=== PATIENT | female | born 1955 | race Caucasian/White ===

== ENCOUNTER 2017-03-13 20:12 | Inpatient (IN) | payer BC ==
[~2017-03-13] VITALS: Ht 167.6 cm; Wt 113.4 kg
[2017-03-13 23:53] VITALS: BP_SYST 122
[2017-03-14] VITALS: BP_SYST 122
[2017-03-14] MEDS ORDERED: FLU VACC QS 2017-18(36MOS+)/PF 0.5 ML/SYR SYRINGE I.M. PRN (00:15)
[2017-03-14] MEDS ORDERED: ZOLPIDEM TARTRATE 5 MG TABLET PO ONE (00:45)
[2017-03-14] MEDS ORDERED: LEVOFLOXACIN 500 MG/D5W 100 ML IV ONE ×2 (01:00→01:41)
[2017-03-14] MEDS: HYDROmorphone 1 MG INJ. 1 MG/ML AMPUL IVP PRN ×2 (01:33→06:44)
[2017-03-14] MEDS: D5NS 1,000 ML IV SCH ×3 (01:45→22:03)
[2017-03-14 04:00] VITALS: BP_SYST 177
[2017-03-14 06:35] LABS: BASOPHILS % (AUTO) 0.7 % (0.0-2.0); EOSINOPHILS # (AUTO) 0.2 K/uL (0.0-0.4); EOSINOPHILS % (AUTO) 3.6 % (0.0-4.0); HEMATOCRIT 38.7 % (36-48); HEMOGLOBIN 13.4 g/dL (12.0-16.0); LYMPHOCYTES # (AUTO) 2.9 K/uL (1.0-5.5); LYMPHOCYTES % (AUTO) 42.9 % (20.5-51.5); MEAN CORPUSCULAR HEMOGLOBIN 33 pg (27-31); MEAN CORPUSCULAR HGB CONC 35 % (32-36); MEAN CORPUSCULAR VOLUME 94 fL (79.0-98.0); MONOCYTES # (AUTO) 0.7 K/uL (0.0-1.0); MONOCYTES % (AUTO) 10.4 % (1.7-9.3); NEUTROPHILS # (AUTO) 2.8 K/uL (1.8-7.7); NEUTROPHILS % (AUTO) 42.4 % (40.0-70.0); PLATELET COUNT (AUTO) 169 K/uL (130-430); RED BLOOD CELL COUNT(AUTO) 4.12 MIL/uL (4.2-6.2); RED CELL DISTRIBUTION WIDTH 13.1 % (9.0-15.0); WHITE BLOOD COUNT (AUTO) 6.6 K/uL (4.8-10.8)
[2017-03-14 07:00] LABS: ALBUMIN 3.3 g/dL (3.4-4.8); CREATININE 0.75 mg/dL (0.55-1.30); POTASSIUM 3.7 mmol/L (3.5-5.1); TOTAL BILIRUBIN 0.6 mg/dL (0.0-1.0)
[2017-03-14] MEDS ORDERED: DIATR MEGLU/DIATRIZ SOD 30 ML SOLUTION PO ONE (07:30)
[2017-03-14 08:01] VITALS: BP_SYST 127
[2017-03-14] MEDS ORDERED: IOHEXOL 100 ML IV ONE (09:00)
[2017-03-14 12:00] VITALS: BP_SYST 107
[2017-03-14 16:00] VITALS: BP_SYST 102
[2017-03-14 19:45] VITALS: BP_SYST 117
[2017-03-14] MEDS: LEVOFLOXACIN 500 MG/D5W 100 ML IV SCH (22:03)
[2017-03-14] MEDS ORDERED: ZOLPIDEM TARTRATE 5 MG TABLET PO PRN (22:15)
[2017-03-15] VITALS (8 sets, daily range): BP systolic 110–134
[2017-03-15] MEDS ORDERED: metroNIDAZOLE 500 mg/NS 100 ML IV ONE (09:15)
[2017-03-15 09:50] LABS: BASOPHILS # (AUTO) 0.2 K/uL (0.0-0.2); BASOPHILS % (AUTO) 3.3 % (0.0-2.0); EOSINOPHILS # (AUTO) 0.2 K/uL (0.0-0.4); EOSINOPHILS % (AUTO) 2.7 % (0.0-4.0); HEMATOCRIT 43.1 % (36-48); HEMOGLOBIN 14.4 g/dL (12.0-16.0); LYMPHOCYTES # (AUTO) 1.6 K/uL (1.0-5.5); LYMPHOCYTES % (AUTO) 26.9 % (20.5-51.5); MEAN CORPUSCULAR HEMOGLOBIN 31 pg (27-31); MEAN CORPUSCULAR HGB CONC 33 % (32-36); MEAN CORPUSCULAR VOLUME 93 fL (79.0-98.0); MONOCYTES # (AUTO) 0.5 K/uL (0.0-1.0); MONOCYTES % (AUTO) 8.6 % (1.7-9.3); NEUTROPHILS # (AUTO) 3.3 K/uL (1.8-7.7); PLATELET COUNT (AUTO) 179 K/uL (130-430); RED BLOOD CELL COUNT(AUTO) 4.62 MIL/uL (4.2-6.2); RED CELL DISTRIBUTION WIDTH 13.4 % (9.0-15.0); WHITE BLOOD COUNT (AUTO) 5.8 K/uL (4.8-10.8)
[2017-03-15 10:07] LABS: CALCIUM 9.2 mg/dL (8.4-11.0); CREATININE 0.69 mg/dL (0.55-1.30)
[2017-03-15 10:11] LABS: ALBUMIN 3.5 g/dL (3.4-4.8); TOTAL BILIRUBIN 0.4 mg/dL (0.0-1.0)
[2017-03-15 10:25] LABS: NEUTROPHILS % (AUTO) 58.5 % (40.0-70.0)
[2017-03-15 12:30] LABS: INR 1.2 (0.8-1.2); PROTHROMBIN TIME 12.1 SECS (9.5-12.5)
[2017-03-15] MEDS: metroNIDAZOLE 500 mg/NS 100 ML IV SCH ×2 (14:00→23:18)
[2017-03-15 15:36] LABS: BILIRUBIN,URINE NEGATIVE (NEGATIVE); BLOOD, URINE NEGATIVE (NEGATIVE); CLARITY/URINE CLEAR (CLEAR); COLOR,URINE YELLOW (YELLOW); GLUCOSE,URINE NEGATIVE (NEGATIVE); KETONES,URINE NEGATIVE (NEGATIVE); LEUKOCYTE ESTERASE ,URINE NEGATIVE (NEGATIVE); NITRITE, URINE NEGATIVE (NEGATIVE); PROTEIN URINE NEGATIVE (NEGATIVE)
[2017-03-15] MEDS: D5NS 1,000 ML IV SCH ×2 (15:38→18:55)
[2017-03-15] MEDS ORDERED: SEVOFLURANE 15 MIN GAS INH ONE (16:35)
[2017-03-15] MEDS ORDERED: NS IRRIG SOLN 1000 ML IR ONE (16:35)
[2017-03-15] MEDS ORDERED: fentaNYL CITRATE/PF 100 MCG/2 ML AMP IVP ONE (16:35)
[2017-03-15] MEDS ORDERED: PROPOFOL 200MG/ 20ML VIAL (DIPRIVAN) IV ONE ×2 (16:35)
[2017-03-15] MEDS ORDERED: NS 1000 ML BAG IV ONE (16:35)
[2017-03-15] MEDS ORDERED: MIDAZOLAM HCL 5 MG/5 ML VIAL IVP ONE (16:35)
[2017-03-15] MEDS ORDERED: LR 1,000 ML IV.SOLN IV ONE (16:35)
[2017-03-15] MEDS ORDERED: LR 1,000 ML IV SCH (17:25)
[2017-03-15] MEDS ORDERED: MORPHINE 4 MG/ML INJ. SYRINGE IVP PRN ×3 (17:30)
[2017-03-15] MEDS ORDERED: METOCLOPRAMIDE HCL 10 MG/2 ML VIAL IVP PRN (17:30)
[2017-03-15] MEDS ORDERED: MORPHINE 4 MG/ML INJ. SYRINGE ONE (18:06)
[2017-03-15] MEDS ORDERED: HYDROmorphone 1 MG INJ. 1 MG/ML AMPUL ONE (18:25)
[2017-03-15] MEDS: HYDROmorphone 1 MG INJ. 1 MG/ML AMPUL IVP ONE (18:45)
[2017-03-15] MEDS: HYDROmorphone 1 MG INJ. 1 MG/ML AMPUL IVP PRN (20:19)
[2017-03-15] MEDS: LEVOFLOXACIN 500 MG/D5W 100 ML IV SCH (20:20)
[2017-03-16] MEDS: HYDROmorphone 1 MG INJ. 1 MG/ML AMPUL IVP PRN ×5 (00:41→22:58)
[2017-03-16 03:50] VITALS: BP_SYST 115
[2017-03-16] MEDS: D5NS 1,000 ML IV SCH ×3 (06:13→23:05)
[2017-03-16] MEDS: metroNIDAZOLE 500 mg/NS 100 ML IV SCH ×3 (06:13→22:14)
[2017-03-16 07:12] LABS: BASOPHILS % (AUTO) 0.2 % (0.0-2.0); EOSINOPHILS % (AUTO) 0.1 % (0.0-4.0); HEMATOCRIT 39.2 % (36-48); HEMOGLOBIN 13.4 g/dL (12.0-16.0); LYMPHOCYTES # (AUTO) 1.3 K/uL (1.0-5.5); LYMPHOCYTES % (AUTO) 11.4 % (20.5-51.5); MEAN CORPUSCULAR HEMOGLOBIN 32 pg (27-31); MEAN CORPUSCULAR HGB CONC 34 % (32-36); MEAN CORPUSCULAR VOLUME 93 fL (79.0-98.0); MONOCYTES # (AUTO) 0.9 K/uL (0.0-1.0); MONOCYTES % (AUTO) 7.5 % (1.7-9.3); NEUTROPHILS # (AUTO) 9.6 K/uL (1.8-7.7); NEUTROPHILS % (AUTO) 80.8 % (40.0-70.0); PLATELET COUNT (AUTO) 157 K/uL (130-430); RED BLOOD CELL COUNT(AUTO) 4.23 MIL/uL (4.2-6.2); RED CELL DISTRIBUTION WIDTH 13.3 % (9.0-15.0); WHITE BLOOD COUNT (AUTO) 11.8 K/uL (4.8-10.8)
[2017-03-16 08:25] VITALS: BP_SYST 106
[2017-03-16] MEDS ORDERED: PROP10TA10 PO (11:50)
[2017-03-16] MEDS ORDERED: ESCI10TA PO (11:54)
[2017-03-16 12:21] VITALS: BP_SYST 112
[2017-03-16 16:50] VITALS: BP_SYST 116
[2017-03-16] MEDS: PROPRANOLOL HCL 10 MG TABLET (INDERAL) PO SCH (18:00)
[2017-03-16] MEDS ORDERED: ESCITALOPRAM OXALATE 10 MG TABLET PO SCH (18:00)
[2017-03-16] MEDS: ONDANSETRON HCL 4 MG/2 ML VIAL IVP PRN ×2 (18:27→22:57)
[2017-03-16 20:00] VITALS: BP_SYST 115
[2017-03-16] MEDS: LEVOFLOXACIN 500 MG/D5W 100 ML IV SCH (20:59)
[2017-03-16] MEDS: HYDROmorphone 1 MG INJ. 1 MG/ML AMPUL IVP ONE (22:58)
[2017-03-16 23:25] VITALS: BP_SYST 129
[2017-03-17 04:37] VITALS: BP_SYST 122
[2017-03-17] MEDS: metroNIDAZOLE 500 mg/NS 100 ML IV SCH (06:25)
[2017-03-17 07:20] LABS: BASOPHILS % (AUTO) 0.3 % (0.0-2.0); EOSINOPHILS # (AUTO) 0.3 K/uL (0.0-0.4); EOSINOPHILS % (AUTO) 3.3 % (0.0-4.0); HEMATOCRIT 36.6 % (36-48); HEMOGLOBIN 12.7 g/dL (12.0-16.0); LYMPHOCYTES # (AUTO) 1.8 K/uL (1.0-5.5); LYMPHOCYTES % (AUTO) 21.1 % (20.5-51.5); MEAN CORPUSCULAR HEMOGLOBIN 32 pg (27-31); MEAN CORPUSCULAR HGB CONC 35 % (32-36); MEAN CORPUSCULAR VOLUME 93 fL (79.0-98.0); MONOCYTES % (AUTO) 11.6 % (1.7-9.3); NEUTROPHILS # (AUTO) 5.5 K/uL (1.8-7.7); NEUTROPHILS % (AUTO) 63.7 % (40.0-70.0); PLATELET COUNT (AUTO) 142 K/uL (130-430); RED BLOOD CELL COUNT(AUTO) 3.92 MIL/uL (4.2-6.2); RED CELL DISTRIBUTION WIDTH 13.6 % (9.0-15.0); WHITE BLOOD COUNT (AUTO) 8.6 K/uL (4.8-10.8)
[2017-03-17 07:44] LABS: ALBUMIN 2.9 g/dL (3.4-4.8); CALCIUM 8.7 mg/dL (8.4-11.0); CREATININE 0.74 mg/dL (0.55-1.30); POTASSIUM 3.3 mmol/L (3.5-5.1); TOTAL BILIRUBIN 0.5 mg/dL (0.0-1.0)
[2017-03-17] MEDS: ONDANSETRON HCL 4 MG/2 ML VIAL IVP PRN (08:54)
[2017-03-17] MEDS: HYDROmorphone 1 MG INJ. 1 MG/ML AMPUL IVP PRN ×2 (08:57→16:17)
[2017-03-17] MEDS: PROPRANOLOL HCL 10 MG TABLET (INDERAL) PO SCH (08:58)
[2017-03-17] MEDS ORDERED: CITALOPRAM HYDROBROMIDE 20 MG TABLET PO SCH (09:00)
[2017-03-17 12:47] VITALS: BP_SYST 116
[2017-03-17 15:27] VITALS: BP_SYST 119
[2017-03-17] MEDS ORDERED: METR500T PO ×2 (15:55→15:56)
[2017-03-17] MEDS ORDERED: LEVO500T20 PO (16:00)
[2017-03-17 16:35] VITALS: BP_SYST 100
[2017-03-17] MEDS ORDERED: TYC3 PO (16:41)
[2017-03-17] MEDS ORDERED: ONDA4TAB5 PO (16:42)
== END 2017-03-17 16:26 | disposition home health service (06) | DRG 342 ==
LOC: SMU 23:45
PROVIDERS: ADMIT Internal Medicine Hospice and Palliative Medicine; ATTEND Internal Medicine Hospice and Palliative Medicine
PROC: 0DJD4ZZ Inspection of Lower Intestinal Tract, Percutaneous Endoscopic Approach (ICD-10-PCS; 2017-03-15)
PROC: 0DTJ0ZZ Resection of Appendix, Open Approach (ICD-10-PCS; principal; 2017-03-15 16:30)
DX: K35.80 Unspecified acute appendicitis (principal); N83.209 Unspecified ovarian cyst, unspecified side; E66.9 Obesity, unspecified; Z87.442 Personal history of urinary calculi; Z90.49 Acquired absence of other specified parts of digestive tract; Z68.41 Body mass index [BMI] 40.0-44.9, adult; Z98.84 Bariatric surgery status; Z88.0 Allergy status to penicillin; Z88.1 Allergy status to other antibiotic agents
CPT/HCPCS: 36415; 71010; 76705; 80053; 81003; 82150-TC; 82962; 83690-TC; 84702-TC; 85025; 85610-TC; 85730-TC; 86886; 86900; 86901; 87081; 88304; 93005; 94010; C1727; J1170; J1956; J2250; J2270; J2405; J2704; J3010; J3490; J7030; J7042; J7120; Q2037; Q9964; Q9967

== ENCOUNTER 2023-10-12 14:50 | Inpatient (IN) | payer OTHER, MEDICAID ==
[~2023-10-12] VITALS: Ht 167.6 cm; Wt 127.9 kg
[~2023-10-12 14:50] MED LIST: ESCI10TA PO; LEVO500T20 PO; METR500T PO; ONDA4TAB5 PO; PROP10TA10 PO; TYC3 PO
[2023-10-12 14:57] VITALS: BP_SYST 111; PULSE 80; RESP 18; TEMP 98.1; O2SAT 96
[2023-10-12] MEDS ORDERED: ESCI20TA38 PO (15:12)
[2023-10-12] MEDS: NACL 0.9% 1,000 ML IV ONE (15:35)
[2023-10-12 15:46] LABS: BASOPHILS # (AUTO) 0.1 K/uL (0.0-0.2); BASOPHILS % (AUTO) 0.6 % (0.0-2.0); EOSINOPHILS # (AUTO) 0.5 K/uL (0.0-0.4); EOSINOPHILS % (AUTO) 4.7 % (0.0-4.0); HEMATOCRIT 36.4 % (36-48); LYMPHOCYTES # (AUTO) 2.7 K/uL (1.0-5.5); LYMPHOCYTES % (AUTO) 27.5 % (20.5-51.5); MEAN CORPUSCULAR HEMOGLOBIN 38 pg (27-31); MEAN CORPUSCULAR HGB CONC 36 % (32-36); MEAN CORPUSCULAR VOLUME 107 fL (79.0-98.0); MONOCYTES # (AUTO) 1.2 K/uL (0.0-1.0); MONOCYTES % (AUTO) 12.3 % (1.7-9.3); NEUTROPHILS # (AUTO) 5.3 K/uL (1.8-7.7); NEUTROPHILS % (AUTO) 54.9 % (40.0-70.0); PLATELET COUNT (AUTO) 234 K/uL (130-430); RED BLOOD CELL COUNT(AUTO) 3.41 MIL/uL (4.2-6.2); RED CELL DISTRIBUTION WIDTH 14.6 % (9.0-15.0); WHITE BLOOD COUNT (AUTO) 9.7 K/uL (4.8-10.8)
[2023-10-12 16:02] LABS: ANION GAP 10 (5-15); CALCIUM 8.9 mg/dL (8.4-11.0); CARBON DIOXIDE 28 mmol/L (23-29); CHLORIDE 97 mmol/L (98-107); CREATININE 3.62 mg/dL (0.55-1.30); GFR AFRICAN AMERICAN 16 mL/min (>90); GFR NON AFRICAN-AMERICAN 13 mL/min (>90); GLUCOSE 94 mg/dL (74-106); SODIUM SERUM 135 mmol/L (136-145); UREA NITROGEN, BLOOD 25 mg/dL (8-21)
[2023-10-12 16:03] LABS: POTASSIUM 2.9 mmol/L (3.5-5.1)
[2023-10-12] MEDS ORDERED: KCL 20 mEq in NS 1000 mL 1,000 ML IV ONE (16:15)
[2023-10-12] MEDS: POTASSIUM CHLORIDE 20 MEQ/PKT PACKET PO ONE (16:22)
[2023-10-12] MEDS: KCL 20 mEq in 100 mL (PREMIX) 100 ML IV ONE (16:23)
[2023-10-12] MEDS ORDERED: LOSA1TAB40 PO (17:35)
[2023-10-12] MEDS ORDERED: TRAZ50TA54 PO (18:28)
[2023-10-12] MEDS ORDERED: NEU300 PO (18:28)
[2023-10-12] MEDS ORDERED: ARIP10TA52 PO (18:28)
[2023-10-12 18:32] LABS: BILIRUBIN,URINE NEGATIVE (NEGATIVE); BLOOD, URINE NEGATIVE (NEGATIVE); CLARITY/URINE CLEAR (CLEAR); COLOR,URINE YELLOW (YELLOW); GLUCOSE,URINE NEGATIVE (NEGATIVE); KETONES,URINE NEGATIVE (NEGATIVE); LEUKOCYTE ESTERASE ,URINE NEGATIVE (NEGATIVE); NITRITE, URINE NEGATIVE (NEGATIVE); PROTEIN URINE TRACE (NEGATIVE); UROBILINOGEN,URINE 0.2 (0.2-1.0)
[2023-10-12 18:47] LABS: RBC,URINE NONE SEEN /HPF (0-3); WBC,URINE 0-3 /HPF (0-3)
[2023-10-12 18:48] LABS: BACTERIA,URINE MODERATE /HPF (None Seen); MUCUS,URINE None Seen /LPF (None Seen)
[2023-10-12] MEDS: LORazepam 1 MG TABLET PO ONE (20:07)
[2023-10-12] MEDS: ONDANSETRON 4 MG ODT TAB PO PRN (20:08)
[2023-10-12 20:30] VITALS: BP_SYST 118; PULSE 77; RESP 18; TEMP 98.1; O2SAT 98
[2023-10-12 20:33] VITALS: TEMP 98.1; O2SAT 98
[2023-10-12 22:00] VITALS: BP_SYST 111; PULSE 72; RESP 20; TEMP 98; O2SAT 94
[2023-10-13] VITALS (11 sets, daily range): BP systolic 95–122; PULSE 63–83; RESP 16–20; TEMP 96.7–98.5; O2SAT 92–98
[2023-10-13] MEDS: IPRATROPIUM/ALBUTEROL SULFATE 3 ML AMPUL.NEB (DUONEB) INH PRN (03:39)
[2023-10-13 08:09] LABS: BASOPHILS # (AUTO) 0.1 K/uL (0.0-0.2); BASOPHILS % (AUTO) 0.7 % (0.0-2.0); EOSINOPHILS # (AUTO) 0.4 K/uL (0.0-0.4); EOSINOPHILS % (AUTO) 4.7 % (0.0-4.0); HEMATOCRIT 36.9 % (36-48); LYMPHOCYTES # (AUTO) 2.6 K/uL (1.0-5.5); LYMPHOCYTES % (AUTO) 31.8 % (20.5-51.5); MEAN CORPUSCULAR HEMOGLOBIN 38 pg (27-31); MEAN CORPUSCULAR HGB CONC 35 % (32-36); MEAN CORPUSCULAR VOLUME 108 fL (79.0-98.0); MONOCYTES % (AUTO) 12.9 % (1.7-9.3); NEUTROPHILS % (AUTO) 49.9 % (40.0-70.0); PLATELET COUNT (AUTO) 230 K/uL (130-430); RED BLOOD CELL COUNT(AUTO) 3.41 MIL/uL (4.2-6.2); RED CELL DISTRIBUTION WIDTH 14.1 % (9.0-15.0)
[2023-10-13 08:19] LABS: ALBUMIN 2.6 g/dL (3.4-4.8); CALCIUM 8.4 mg/dL (8.4-11.0); CREATININE 3.85 mg/dL (0.55-1.30); POTASSIUM 3.6 mmol/L (3.5-5.1); TOTAL BILIRUBIN 0.7 mg/dL (0.0-1.0); TOTAL PROTEIN, SERUM 5.9 g/dL (6.4-8.3)
[2023-10-13] MEDS: NACL 0.9% 1,000 ML IV SCH (08:53)
[2023-10-13] MEDS ORDERED: LORazepam 2 MG/ML VIAL IVP PRN (12:15)
[2023-10-13] MEDS ORDERED: NALOXONE HCL 0.4 MG/ML AMP (NARCAN) IVP PRN ×2 (12:15)
[2023-10-13] MEDS ORDERED: ARIPiprazole 5 MG TAB PO SCH (12:15)
[2023-10-13] MEDS ORDERED: HYDROcodone/ACETAMIN 10-325 MG TAB PO PRN (12:15)
[2023-10-13] MEDS ORDERED: NON-FORMULARY MEDICATION (Escitalopram Oxalate 1 TAB) PO SCH (12:15)
[2023-10-13] MEDS ORDERED: HYDROcodone/ACETAMIN 5-325 MG TAB (NORCO/ VICODIN) PO PRN (12:15)
[2023-10-13] MEDS: GABAPENTIN 300 MG CAPSULE PO ONE (13:19)
[2023-10-13] MEDS: ARIPiprazole 5 MG TAB PO ONE (13:20)
[2023-10-13] MEDS: CITALOPRAM HYDROBROMIDE 20 MG TABLET PO ONE (13:20)
[2023-10-13] MEDS: DOCUSATE SODIUM 100 MG CAPSULE PO ONE (13:37)
[2023-10-14 01:12] VITALS: RESP 20; TEMP 97.2; O2SAT 97
[2023-10-14 04:22] LABS: ALBUMIN 2.8 g/dL (3.4-4.8); CALCIUM 8.4 mg/dL (8.4-11.0); CREATININE 3.53 mg/dL (0.55-1.30); PHOSPHORUS 4.5 mg/dL (2.7-4.5); POTASSIUM 4.1 mmol/L (3.5-5.1); TOTAL BILIRUBIN 0.6 mg/dL (0.0-1.0); TOTAL PROTEIN, SERUM 6.2 g/dL (6.4-8.3)
[2023-10-14 04:42] LABS: BASOPHILS # (AUTO) 0.1 K/uL (0.0-0.2); BASOPHILS % (AUTO) 0.8 % (0.0-2.0); EOSINOPHILS # (AUTO) 0.3 K/uL (0.0-0.4); EOSINOPHILS % (AUTO) 3.6 % (0.0-4.0); HEMATOCRIT 36.3 % (36-48); HEMOGLOBIN 12.8 g/dL (12.0-16.0); LYMPHOCYTES # (AUTO) 2.5 K/uL (1.0-5.5); LYMPHOCYTES % (AUTO) 31.1 % (20.5-51.5); MEAN CORPUSCULAR HEMOGLOBIN 38 pg (27-31); MEAN CORPUSCULAR HGB CONC 35 % (32-36); MEAN CORPUSCULAR VOLUME 109 fL (79.0-98.0); MONOCYTES # (AUTO) 0.7 K/uL (0.0-1.0); MONOCYTES % (AUTO) 9.2 % (1.7-9.3); NEUTROPHILS # (AUTO) 4.4 K/uL (1.8-7.7); NEUTROPHILS % (AUTO) 55.3 % (40.0-70.0); PLATELET COUNT (AUTO) 264 K/uL (130-430); RED BLOOD CELL COUNT(AUTO) 3.34 MIL/uL (4.2-6.2); RED CELL DISTRIBUTION WIDTH 14.2 % (9.0-15.0); WHITE BLOOD COUNT (AUTO) 7.9 K/uL (4.8-10.8)
[2023-10-14 08:15] VITALS: BP_SYST 127; PULSE 67; RESP 16; TEMP 98.1; O2SAT 98
[2023-10-14] MEDS: ARIPiprazole 5 MG TAB PO SCH (10:50)
[2023-10-14] MEDS: GABAPENTIN 300 MG CAPSULE PO SCH (10:52)
[2023-10-14] MEDS: CITALOPRAM HYDROBROMIDE 20 MG TABLET PO SCH (10:52)
[2023-10-14] MEDS: DOCUSATE SODIUM 100 MG CAPSULE PO SCH (11:01)
[2023-10-14 11:10] VITALS: O2SAT 94
[2023-10-14 12:24] VITALS: BP_SYST 130; PULSE 64; RESP 17; TEMP 98.4; O2SAT 98
[2023-10-14] MEDS: guaiFENesin/DEXTROMETHORPHAN 10 ML UDC PO PRN (13:03)
[2023-10-14 18:34] VITALS: BP_SYST 115; PULSE 65; RESP 18; TEMP 98.5; O2SAT 98
[2023-10-14 20:21] VITALS: BP_SYST 103; PULSE 69; RESP 18; TEMP 96.6; O2SAT 98
[2023-10-14] MEDS: traZODone HCL 50 MG TABLET (DESYREL) PO PRN (20:56)
[2023-10-15] VITALS (8 sets, daily range): BP systolic 106–140; PULSE 62–66; RESP 18; TEMP 97.3–99; O2SAT 93–99
[2023-10-15 05:49] LABS: BASOPHILS # (AUTO) 0.1 K/uL (0.0-0.2); EOSINOPHILS # (AUTO) 0.2 K/uL (0.0-0.4); EOSINOPHILS % (AUTO) 4.1 % (0.0-4.0); HEMATOCRIT 32.9 % (36-48); HEMOGLOBIN 11.6 g/dL (12.0-16.0); LYMPHOCYTES # (AUTO) 2.1 K/uL (1.0-5.5); MEAN CORPUSCULAR HEMOGLOBIN 38 pg (27-31); MEAN CORPUSCULAR HGB CONC 35 % (32-36); MEAN CORPUSCULAR VOLUME 108 fL (79.0-98.0); MONOCYTES # (AUTO) 0.7 K/uL (0.0-1.0); MONOCYTES % (AUTO) 11.5 % (1.7-9.3); PLATELET COUNT (AUTO) 233 K/uL (130-430); RED BLOOD CELL COUNT(AUTO) 3.04 MIL/uL (4.2-6.2); RED CELL DISTRIBUTION WIDTH 14.2 % (9.0-15.0); WHITE BLOOD COUNT (AUTO) 6.2 K/uL (4.8-10.8)
[2023-10-15 06:10] LABS: CALCIUM 8.2 mg/dL (8.4-11.0); CREATININE 2.4 mg/dL (0.55-1.30); PHOSPHORUS 4.9 mg/dL (2.7-4.5); POTASSIUM 3.7 mmol/L (3.5-5.1)
[2023-10-15 07:28] LABS: NEUTROPHILS % (AUTO) 49.4 % (40.0-70.0)
[2023-10-15] MEDS: ONDANSETRON HCL 4 MG/2 ML VIAL IVP PRN (09:21)
[2023-10-15 21:56] LABS: CREATININE 2.4 mg/dL (0.55-1.30)
[2023-10-15 21:58] LABS: BODY SURFACE AREA 2.3
[2023-10-15 21:59] LABS: CREATININE CLEARANCE,URINE 16.8 ml/min (80-120); CREATININE,URINE 30.9 MG/DL (30-125)
[2023-10-16] VITALS: BP_SYST 136; PULSE 61; RESP 18; TEMP 98.2; O2SAT 98
[2023-10-16 04:00] VITALS: BP_SYST 125; PULSE 67; RESP 18; TEMP 97.7; O2SAT 94
[2023-10-16 05:20] LABS: CALCIUM 8.2 mg/dL (8.4-11.0); CREATININE 1.83 mg/dL (0.55-1.30); PHOSPHORUS 4.5 mg/dL (2.7-4.5); POTASSIUM 3.6 mmol/L (3.5-5.1)
[2023-10-16 05:31] LABS: BASOPHILS # (AUTO) 0.1 K/uL (0.0-0.2); EOSINOPHILS # (AUTO) 0.3 K/uL (0.0-0.4); EOSINOPHILS % (AUTO) 4.4 % (0.0-4.0); HEMATOCRIT 31.5 % (36-48); HEMOGLOBIN 11.2 g/dL (12.0-16.0); LYMPHOCYTES # (AUTO) 2.3 K/uL (1.0-5.5); LYMPHOCYTES % (AUTO) 35.6 % (20.5-51.5); MEAN CORPUSCULAR HEMOGLOBIN 38 pg (27-31); MEAN CORPUSCULAR HGB CONC 36 % (32-36); MEAN CORPUSCULAR VOLUME 108 fL (79.0-98.0); MONOCYTES # (AUTO) 0.7 K/uL (0.0-1.0); MONOCYTES % (AUTO) 10.9 % (1.7-9.3); NEUTROPHILS # (AUTO) 3.1 K/uL (1.8-7.7); NEUTROPHILS % (AUTO) 48.1 % (40.0-70.0); PLATELET COUNT (AUTO) 242 K/uL (130-430); RED BLOOD CELL COUNT(AUTO) 2.92 MIL/uL (4.2-6.2); RED CELL DISTRIBUTION WIDTH 14.4 % (9.0-15.0); WHITE BLOOD COUNT (AUTO) 6.5 K/uL (4.8-10.8)
[2023-10-16] MEDS: ACETAMINOPHEN 325 MG TABLET PO PRN (07:36)
[2023-10-16 08:01] VITALS: BP_SYST 123; PULSE 71; RESP 19; TEMP 98.1; O2SAT 99
[2023-10-16 12:00] VITALS: BP_SYST 129; PULSE 67; RESP 16; TEMP 97.9; O2SAT 98
[2023-10-16 16:04] VITALS: BP_SYST 122; PULSE 69; RESP 18; TEMP 98.1; O2SAT 98
[2023-10-16 16:33] VITALS: BP_SYST 130; PULSE 78; RESP 18; TEMP 98.6; O2SAT 98
== END 2023-10-16 16:53 | disposition home or self-care (01) | DRG 204 ==
LOC: SED 14:50 → STU 17:36 → SMU 20:25 → STU 20:26 → SMU 10-14 16:19
PROVIDERS: ADMIT Preventive Medicine Preventive Medicine/Occupational Environmental Medicine; ATTEND Preventive Medicine Preventive Medicine/Occupational Environmental Medicine
DX: I95.1 Orthostatic hypotension (principal); N17.0 Acute kidney failure with tubular necrosis; E44.0 Moderate protein-calorie malnutrition; E86.0 Dehydration; E87.1 Hypo-osmolality and hyponatremia; I10 Essential (primary) hypertension; D64.9 Anemia, unspecified; I34.1 Nonrheumatic mitral (valve) prolapse; F33.9 Major depressive disorder, recurrent, unspecified; E87.6 Hypokalemia; Z90.49 Acquired absence of other specified parts of digestive tract; Z98.84 Bariatric surgery status; Z79.899 Other long term (current) drug therapy; Z88.0 Allergy status to penicillin; Z68.45 Body mass index [BMI] 70 or greater, adult
CPT/HCPCS: 36415; 71045; 76770; 80048; 80053; 81000; 81001; 81015; 82575; 83735; 83880; 84100; 84484; 85025; 87081; 87086; 93005; 94070; 94640; 94760; 99285; G0378; J2405; J3480; Q0162